=== PATIENT | male | born 1995 | race Caucasian/White ===

== ENCOUNTER 2022-10-14 16:28 | Emergency (ER) | payer BC ==
[~2022-10-14] VITALS: Ht 177.8 cm; Wt 82.0 kg
[2022-10-14 16:36] VITALS: O2SAT 98
[2022-10-14 17:00] VITALS: BP 133/90; PULSE 78; RESP 16; TEMP 98.8
[2022-10-14] MEDS ORDERED: ACETAMINOPHEN 325MG TABLET PO ONE (17:00)
[2022-10-14] MEDS ORDERED: IBUPROFEN 400MG TABLET PO ONE (17:00)
[2022-10-14] MEDS ORDERED: AMOX1TAB16 MT (18:56)
== END 2022-10-14 19:34 | disposition home or self-care (01) ==
LOC: ER 16:28
DX: S02.5XXA Fracture of tooth (traumatic), initial encounter for closed fracture (principal); Y08.89XA Assault by other specified means, initial encounter; Y93.89 Activity, other specified; Y92.89 Other specified places as the place of occurrence of the external cause; Y99.8 Other external cause status
CPT/HCPCS: 70486; 99284